=== PATIENT | male | born 1965 | race Caucasian/White ===

== ENCOUNTER → 2016-10-26 | Outpatient (CLI) | payer BC ==
[2016-10-26 10:47] LABS: HEMOGLOBIN 12.1 gm/dl (14.0-17.5); RED BLOOD COUNT 4.02 M/UL (4.20-5.50); WHITE BLOOD COUNT 3.3 K/UL (4.5-11.0)
[2016-10-26 11:02] LABS: BUN/CREATININE RATIO 14 (0-10)
== END ==
LOC: CT 08:30
PROVIDERS: Internal Medicine Hematology & Oncology
DX: C78.01 Secondary malignant neoplasm of right lung (principal); C79.72 Secondary malignant neoplasm of left adrenal gland; R53.83 Other fatigue; N28.89 Other specified disorders of kidney and ureter; I31.3 Pericardial effusion (noninflammatory); R91.8 Other nonspecific abnormal finding of lung field
CPT/HCPCS: 36415; 70470; 71260; 80053; 84439; 84443; 85025; J7050; Q9962

== ENCOUNTER → 2017-01-05 | Outpatient (CLI) | payer BC | LOC: CT 01-04 11:00 | DX: C78.01 Secondary malignant neoplasm of right lung (principal); R53.83 Other fatigue; D64.9 Anemia, unspecified | CPT/HCPCS: 36415; 71260; 82565; 84520; J7050; Q9962 ==

== ENCOUNTER 2017-04-30 07:58 | Emergency (ER) | payer BC, MEDICARE ==
[2017-04-30 08:39] LABS: HEMOGLOBIN 11.2 gm/dl (14.0-17.5); RED BLOOD COUNT 4.38 M/UL (4.20-5.50); WHITE BLOOD COUNT 9.2 K/UL (4.5-11.0)
== END 2017-04-30 13:00 | disposition short-term general hospital (02) ==
LOC: ER1 07:58
PROVIDERS: Emergency Medicine
DX: R10.9 Unspecified abdominal pain (principal); C64.2 Malignant neoplasm of left kidney, except renal pelvis; E11.65 Type 2 diabetes mellitus with hyperglycemia; D64.9 Anemia, unspecified; E87.1 Hypo-osmolality and hyponatremia; R31.9 Hematuria, unspecified; R10.817 Generalized abdominal tenderness; I10 Essential (primary) hypertension
CPT/HCPCS: 36415; 80053; 81001; 82009; 82962; 83605; 83690; 84484; 85025; 87040; 93005; 96361; 96365; 96372; 96375; 99285; J1335; J2270; J2405; J7030; J7050